=== PATIENT | female | born 1980 | race Caucasian/White ===

== ENCOUNTER 2017-03-15 17:25 | Emergency (ER) | payer MEDICAID ==
[~2017-03-15] VITALS: Wt 67.8 kg
[~2017-03-15 17:25] MED LIST: NORG1TAB30
[2017-03-15] MEDS ORDERED: DIPHTH/TET/ACEL PERTUSS (ADULT) 0.5 ML VIAL IM* ONE (20:00)
[2017-03-15] MEDS ORDERED: LIDOCAINE 2% (MDV) 20 ML INJ INJ ONE (20:00)
--- NOTE | 2017-03-15 20:59 | RADRPT ---
PROCEDURE: XR Humerus. CLINICAL INDICATION: Possible foreign body in the right upper arm status post fall with laceration . TECHNIQUE: 2 views of the right humerus and 2 views of the left humerus were obtained, for a total of 4 images. COMPARISON: None. FINDINGS: There is normal osseous mineralization and alignment. No fracture or osseous lesion is identified. T here are normal joints without evidence of arthritis or dislocation. The soft tissues are unremarkab le. No evident retained radiopaque foreign body in the soft tissues of the bilateral upper extremiti es from shoulders to elbows. IMPRESSION: No evident retained radiopaque foreign body in the soft tissues of the bilateral upper extremities f rom shoulders to elbows. RPTAT: [facility] Physician Nicole Date Time Electronically viewed and signed by Physician Nicole on 03/15/2017 20:59 RS/
[2017-03-15] MEDS ORDERED: CEPH-443 PO (21:33)
[2017-03-15] MEDS ORDERED: IBUP-1542 PO (21:34)
--- NOTE | 2017-03-15 21:38 | ERD ---
ER Documentation Chief Complaint Date/Time DATE: 03/15/17 TIME: 21:35 Chief Complaint right arm lac HPI This is a 37-year-old female presents to ER with her significant other for a laceration to her right upper arm. Patient states that she was trying to a cycle metal when her and her partner cut themselves with the metal. Patient denies any numbness or tingling in the area, patient states that she is worried that a piece of metal might be in her arm. Patient does admit to pain to the area that is throbbing in quality it is nonradiating. Patient does not have a recent tetanus shot. ROS 12 point review of systems was done, all negative except per HPI. Medications Home Meds Active Scripts Ibuprofen* (Motrin*) 600 Mg Tab, 600 MG PO Q6, #30 TAB Prov:JESSI CRUZ 03/15/17 Cephalexin* (Keflex*) 500 Mg Capsule, 500 MG PO BID for 7 Days, CAP Prov:JESSI CRUZ 03/15/17 Reported Medications Norgestimate-Ethinyl Estradiol (Ortho Tri-Cyclen) 7 Daysx 3 28 Tablet 03/17/10 Allergies Allergies: Coded Allergies: No Known Drug Allergy (Verified Allergy, Unknown, 10/30/08) PMhx/Soc Medical and Surgical Hx: pt denies Medical Hx History of Surgery: Yes (GALLBLADDER 2003) Hx Neurological Disorder: No Hx Respiratory Disorders: No Hx Cardiac Disorders: No Hx Miscellaneous Medical Probl: No Hx Alcohol Use: No Hx Substance Use: No Hx Tobacco Use: Yes (1 PACK EVERY 3 DAYS) Smoking Status: Current every day smoker Physical Exam Vitals Vital Signs Date Time Temp Pulse Resp B/P Pulse Ox O2 Delivery O2 Flow Rate FiO2 03/15/17 17:28 98.1 84 20 131/84 99 Physical Exam GENERAL: The patient is well developed and appropriate for usual state of health , in no apparent distress. HEENT: Atraumatic. CHEST: Clear to auscultation bilaterally. There are no rales, wheezes or rhonchi. HEART: Regular rate and rhythm. No murmurs, clicks, rubs or gallops.ss. NEURO: Alert and oriented. SKIN: There is a 1 cm linear laceration to the upper right arm. There is a 0.5 cm linear laceration directly below first laceration. Results 24 hrs Current Medications Medications (Trade) Dose Ordered Sig/Paulina Route PRN Reason Start Time Stop Time Status Last Admin Dose Admin Diphtheria/ Tetanus/Acell Pertussis (Adacel) 0.5 ml ONCE ONCE IM* 03/15/17 20:00 03/15/17 20:01 DC 03/15/17 19:46 Lidocaine (Xylocaine 2% (Mdv) 20 ml) 20 ml ONCE ONCE INJ 03/15/17 20:00 03/15/17 20:01 DC 03/15/17 19:46 Procedures/MDM This is a 37-year-old female presents to the ER with 2 lacerations to her right arm. Patient does not want sutures and states she is allergic to Dermabond. Explained to patient that sutures would mean a smaller chance of infection and smaller chance of scarring, patient does not want sutures. She understands the risks versus benefits. 0.5 cm laceration was closed with Steri-Strips. Pressure dressing was done over the 1 cm laceration. There was evidence of foreign body. Patient has full range of motion of her right upper extremity and she is neurovascularly intact. Patient will be sent home with Keflex with ibuprofen. She is to follow-up with her primary care doctor within 1-2 days return to ER sooner if symptoms worsen. My medical decision making shared with the patient she understands and agrees with plan. Departure Diagnosis: Primary Impression: Laceration Condition: Stable Patient Instructions: Laceration, All Additional Instructions: Call your primary care doctor TOMORROW for an appointment during the next 1-2 days.See the doctor sooner or return here if your condition worsens before your appointment time. JESSI CRUZ Mar 15, 2017 21:38
== END 2017-03-15 21:41 | disposition home or self-care (01) ==
LOC: FTE 17:25
DX: S41.121A Laceration with foreign body of right upper arm, initial encounter (principal); F17.210 Nicotine dependence, cigarettes, uncomplicated; Y28.9XXA Contact with unspecified sharp object, undetermined intent, initial encounter; Y92.9 Unspecified place or not applicable; Z23 Encounter for immunization
CPT/HCPCS: 73060; 90715; Z7610; 90471